=== PATIENT | female | born 1955 | race American Indian/Alaskan Native ===

== ENCOUNTER 2019-10-04 15:21 | Outpatient (CLI) | payer MEDICARE ==
--- NOTE | 2019-10-04 17:17 | Ultrasound Report ---
ULTRASOUND PELVIS INDICATION: PELVIC PAIN. TECHNIQUE: Transabdominal and Transvaginal. Duplex Color Doppler used: Yes. COMPARISON: None available FINDINGS: Uterus: Present. Size: 8.8 x 3.3 x 5.1 cm. Endometrial complex: Normal measuring 0.5 cm. Mass lesions: A uterine fundal fibroid enters 8 x 7 x 5 mm. Additional findings: A 3 x 5 mm calcification is seen along the uterine fundus adjacent to the endome trium without a distinct associated mass. Right Ovary: Not visualized. Left Ovary: Not visualized. Urinary Bladder: Normal. Free Fluid: None. Additional Findings: None. IMPRESSION: 1. No acute sonographic abnormality of the pelvis. 2. Uterine fibroid as above. 3. Nonvisualization of the ovaries. Signer Name: Warner Lehman MD Signed: 10/04/2019 5:13 PM Workstation Name: [id number]
== END 2019-10-04 15:22 | disposition home or self-care (01) ==
LOC: SPVWC 15:21
PROVIDERS: ATTEND Nurse Practitioner Gerontology
DX: D25.9 Leiomyoma of uterus, unspecified (principal); N85.8 Other specified noninflammatory disorders of uterus
CPT/HCPCS: 76830; 76856